=== PATIENT | female | born 1965 | race Caucasian/White ===

== ENCOUNTER → 2019-12-22 | Outpatient (CLI) | payer MEDICARE, OTHER ==
--- NOTE | 2019-12-22 11:38 | KCIC ---
MR of the left knee HISTORY: Left knee pain. ACL surgery 2012. Medial pain and swelling, new. TECHNIQUE: Routine multiplanar sequences are obtained. COMPARISON: None are available. FINDINGS: Mild signal identified within the medial meniscus posterior horn with slight inferior surface violation compatible with a small tear, although if there has been prior surgery at the medial meniscus, this finding is less specific. No evidence of lateral meniscal tear. Anterior cruciate ligament has been reconstructed. The reconstruction appears intact. Tiny tibial condyle cyst. Posterior cruciate ligament is intact. Medial collateral ligament is intact. Iliotibial band unremarkable. Fibular collateral ligament, biceps femoris tendon and popliteus tendon are intact. The extensor mechanism is intact. Mild chondromalacia at the medial patella. No evidence of acute articular cartilage defect. No acute fracture or aggressive bone destruction. Small joint effusion. Trace Beach's cyst. Scarring within the infrapatellar fat, presumably due to prior surgery. Impression: 1. Signal at the medial meniscus, compatible with a small tear. However, prior meniscal surgery could contribute to this appearance. 2. Anterior cruciate ligament reconstruction is intact. 3. Mild chondromalacia at the medial patella. Electronically signed by: Cristian Villa MD (12/22/2019 11:35 AM) [id number]
--- NOTE | 2019-12-22 11:38 | KCIC ---
MR of the right knee HISTORY: Right knee pain. Previous meniscal surgery in the . Lateral pain and swelling. COMPARISON: None are available. TECHNIQUE: Routine multiplanar sequences are obtained. FINDINGS: The medial meniscus is small and distorted, could be partially due to prior meniscectomy, but recurrent tearing is possible. No evidence of lateral meniscal tear. Anterior cruciate ligament is poorly seen, chronic tear is suspected. No acute edema in the notch. No acute pivot shift bone marrow contusions. Posterior cruciate ligament is intact. Medial collateral ligament intact. Iliotibial band unremarkable. Fibular collateral ligament, biceps femoris tendon and popliteus tendon are intact. Extensor mechanism intact. Small joint effusion. No significant Beach's cyst. Severe cartilage loss at the medial joint compartment with subchondral bone irregularity and mild subchondral edema/cystic change. Mild lateral compartment degenerative change. Severe chondromalacia at the medial patella. No evidence of acute fracture or aggressive bone destruction. No acute soft tissue abnormality. IMPRESSION: 1. Small and distorted medial meniscus, could be due partially to prior meniscectomy, but recurrent tearing is possible and not excludable. 2. Nonvisualized anterior cruciate ligament, compatible with a chronic tear. 3. DJD, severe at the medial joint compartment. Electronically signed by: Cristian Villa MD (12/22/2019 11:35 AM) [id number]
== END | disposition home or self-care (01) ==
LOC: KCIC MRI 09:56
PROVIDERS: ATTEND Orthopaedic Surgery
DX: S83.242A Other tear of medial meniscus, current injury, left knee, initial encounter (principal); M17.11 Unilateral primary osteoarthritis, right knee; M22.42 Chondromalacia patellae, left knee; X58.XXXA Exposure to other specified factors, initial encounter; Y93.89 Activity, other specified; Y92.89 Other specified places as the place of occurrence of the external cause; Y99.8 Other external cause status
CPT/HCPCS: 73721

== ENCOUNTER 2020-01-05 06:00 | Day surgery (SDC) | payer OTHER, MEDICARE ==
--- NOTE | 2020-01-04 18:20 | PDOC1 ---
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 She was lifting something and both knees gave out and she fell to the floor. She presented to my office in a wheelchair because she could not walk after the bilateral knee giving way. She has a history of a prior knee injury and surgery in 2011, when she stepped off a curb incorrectly, and subsequently underwent ACL reconstruction using cadaver graft (allograft) done by Dr. Cadena in 2011. She has a history of a right knee open meniscectomy when she was 14 years old. She has a complex medical history including antiph ospholipid syndrome, lupus, and a history of postprocedural complications: She had a colonoscopy after which she had an infection, had a subsequent laparotomy, and then spent a month in the ICU. She had an MRI of both knees recently, and the right knee has fairly significant arthritis and the right knee is no longer amenable to an arthroscopic procedure. She and I have discussed a possible right knee replacement surgery once the pandemic has subsided, and after she can begin depending on the left lower e xtremity for weightbearing. The right knee continues to be somewhat painful but is not having the severe mechanical complications that she is having on the left knee. On the left knee where she had that prior ACL reconstruction she has had persistent locking and giving way episodes, and multiple falls as a result. An MRI was done which shows that the graft is intact, but she has instability episodes that are suspicious for a nonfunctional ACL. The MRI also shows a medial meniscus tear which is also a likely source of locking and giving way. Normally an arthroscopic meniscectomy and/or ACL reconstruction would not be considered urgent enough to do during this COVID-19 pandemic crisis, however has fallen frequently since the knee episode earlier this month and is nearly nonfunctional and nearly unable to walk or mobilize at all. I believe the benefits of proceeding with surgery (despite the pandemic and moratorium on elective procedures) outweigh the potential risks of complications of her frequent falls such as wrist fracture, hip fracture, concussion, or other injuries. I do not believe this is elective and she agrees. We discussed the risks benefits and alternatives of proceeding at this time and she would like to proceed and it is my recommendation to proceed with left knee arthroscopy, medial meniscectomy and possible revision ACL reconstruction. Despite her antiphospholipid syndrome, she has never had a DVT or PE. Past Medical History Past Medical History Antiphospholipid syndrome, hypertension, lupus Cardiovascular: HTN Rheumatologic: Other (lupus, antiphospholipid syndrome) Past Surgical History Past Surgical History Laparotomy following complications of colonoscopy Carpal tunnel release ACL reconstruction Open meniscectomy Past Surgical History: Colon Resection Family History Family History Lupus, rheumatoid arthritis, cancer Family History: Cancer Social History Smoke: No ALCOHOL: none Current Medications Current Medications Current Medications Ondansetron HCl (Zofran) 4 mg PRN Q6HRS PRN IV NAUSEA/VOMITING; Start 01/05/20 at 07:00; Stop 01/06/20 at 06:59 Morphine Sulfate (Morphine Sulfate) 1 mg PRN Q10MIN PRN IV SEVERE PAIN 7-10; Start 01/05/20 at 07:00; Stop 01/06/20 at 06:59 Ringer's Solution 1,000 ml @ 30 mls/hr Q24H IV ; Start 01/05/20 at 07:00; Stop 01/05/20 at 18:59 Lidocaine HCl (Xylocaine-Mpf 1% 2ml Vial) 2 ml PRN 1X PRN ID PRIOR TO IV START; Start 01/05/20 at 07:00; Stop 01/06/20 at 06:59 Hydromorphone HCl (Dilaudid) 0.5 mg PRN Q10MIN PRN IV SEV PAIN, Second choice; Start 01/05/20 at 07:00; Stop 01/06/20 at 06:59 Prochlorperazine Edisylate (Compazine) 5 mg PACU PRN PRN IV NAUSEA, MRX1; Start 01/05/20 at 07:00; Stop 01/06/20 at 06:59 Cefazolin Sodium/ Dextrose 50 ml @ 100 mls/hr 1X PREOP PRN IV PRIOR TO PROCEDURE; Start 01/05/20 at 06:00; Stop 01/05/20 at 18:00 Active Scripts Active Reported Proair Hfa Inhaler (Albuterol Sulfate) 8.5 Gm Hfa.aer.ad 2 Puff IH PRN Q4-6HRS PRN 21 Days Irbesartan 75 Mg Tablet 75 Mg PO DAILY Carvedilol 25 Mg Tablet 25 Mg PO BIDWMEALS Allergies Allergies: Coded Allergies: acetaminophen (Verified Allergy, Severe, Anaphylaxis, 01/01/20) fentanyl (Verified Allergy, Severe, Anaphylaxis, 01/01/20) Uncoded Allergies: pantene soap (Adverse Reaction, Severe, Shortness of Air, 01/01/20) difficulty breathing ROS Review of System OPHTHALMOLOGY: Blurred vision none. Double vision denies. Change in vision none. ENT: Hearing loss none. Change in voice denies. Rhinorrhea none. CARDIOLOGY: Palpitations none. Shortness of breath denies. Chest pain denies. CONSTITUTIONAL: Fever denies. Chills denies. Weight gain denies. Weakness none. weight loss denies. Fatigue none. GASTROENTEROLOGY: Diarrhea reports. Vomiting none. Dysphagia none. UROLOGY: Voiding normally yes. Hematuria none. MUSCULOSKELETAL: Chronic back or neck pain denies. Swelling of the feet, hands, ankles and /or legs denies. Joint pain reports. Tingling/numbness no. DERMATOLOGY: Rash reports. Lumps none. NEUROLOGY: Dizziness/lightheadedness denies. Double vision, temporary blindness denies. Tingling/numbness none. PSYCHOLOGY: Change in mood or personality denies. Memory loss none. ENDOCRINOLOGY: Obesity denies. Fatigue none. Weight loss none. HEMATOLOGY/LYMPH: Hepatitis denies. Enlarged lymph nodes denies. Physical Exam General: Alert, Cooperative HEENT: Atraumatic Lungs: Normal air movement Heart: RRR Abdomen: Soft Extremities: Other (She is nearly unable to ambulate or weight bear as she was unable to get on the exam table. She is using a wheelchair. Knee The RIGHT knee shows normal alignment, no masses, but a small effusion. There is tenderness at the lateral joint line and a positive lateral Zaira's test. The medial joint line shows minimal tenderness. Range of motion is 10-80 degrees. There is trace patellofemoral crepitus. There is lateral joint line pain with deep flexion and especially with rotation of the tibia. The knee is stable to varus and valgus stress without subluxation or laxity. The ACL feels intact on Clarisa testing. Muscle strength is normal (5/5) for quadriceps and hamstrings, and muscle tone is normal. There are well healed medial arthrotomy scars from prior open meniscectomy skin is otherwise normal with no scars, rashes, lesions or ulcers. Light touch sensation is intact. No edema and no varicosities. Dorsalis pedis pulse is intact and capillary refill is normal. The LEFT knee shows normal alignment, no masses, but moderate effusion. There is tenderness at the medial joint line and a positive medial Zaira's test. The lateral joint line shows minimal tenderness. Range of motion is 10-80 degrees. There is trace patellofemoral crepitus. There is medial joint line pain with deep flexion and especially with rotation of the tibia. The knee is stable to varus and valgus stress without subluxation or laxity. Anterior drawer is suspicious for graft rupture. Muscle strength is normal (5/5) for quadriceps and hamstrings, and muscle tone is normal. There are well healed surgical scars from prior ACL reconstruction with cadaver graft. The skin is otherwise normal with no scars, rashes, lesions or ulcers. Light touch sensation is intact. No edema and no varicosities. Dorsalis pedis pulse is intact and capillary refill is normal ) Images Images X-rays 12/21/2019 showed postsurgical changes of left knee consistent with ACL re construction. There is minimal if any joint space narrowing. MRI of the left knee from 12/22/2019 show a complex medial meniscus tear series 6 image 16. Series 6 image 12 shows knee effusion, and ACL graft of questionable integrity. VTE Prophylaxis Ordered VTE Prophylaxis Devices: Yes VTE Pharmacological Prophylaxi: Yes Assessment/Plan Assessment/Plan She and I had a long discussion about the risks, benefits and alternatives of proceeding with surgery at this time. She has had frequent falls and is at risk of additional injuries. Both knees continue to be problematic but the left knee is amenable to an arthroscopic procedure based on my evaluation. I think an arthroscopic meniscectomy may be all that is needed to keep her from falling. I will check her ACL graft intraoperatively for function such as doing an intraoperative pivot shift maneuver under anesthesia. If the knee is unstable regarding ACL function, then ACL revision reconstruction would be helpful to prevent arthritis, protect the joint, and provide stability of the knee. The right knee unfortunately is beyond any arthroscopic procedure based on the severe cartilage loss, and my recommendation for her right knee is ultimately a total knee arthroplasty, once the pandemic has resolved. The right knee has a chronically torn ACL, absent medial meniscus, and severe osteoarthritis. We discussed potential risks of arthroscopic surgery, including risks of bleeding, infection, progressive arthritis, blood clots, or other potential surgical or anesthetic complications. All of her questions were answered and she desires to proceed with surgery. We will use DVT prophylaxis postoperatively due to her antiphospholipid syndrome. ILIR JACKSON MD Jan 04, 2020 18:20
[~2020-01-05] VITALS: Ht 157.5 cm; Wt 94.8 kg
[~2020-01-05 06:00] MED LIST: ALBU2.5V8 IH; CARV25TA2 PO; IRBE75TA16 PO
[2020-01-05] MEDS ORDERED: HYDROmorphone 2 MG/ML VIAL IV PRN (07:00)
[2020-01-05] MEDS ORDERED: IV RINGERS,LACTATED 1000ML 1,000 ML IV SCH (07:00)
[2020-01-05] MEDS ORDERED: ONDANSETRON PF 4 MG/2 ML VIAL. IV PRN (07:00)
[2020-01-05] MEDS ORDERED: LIDOCAINE 1% PF 2 ML VIAL. ID PRN (07:00)
[2020-01-05] MEDS ORDERED: ceFAZolin 2GM PREMIX 2 GM/50 ML BAG IV ONE (07:00)
[2020-01-05] MEDS ORDERED: MORPHINE SULFATE 2 MG/ML VIAL. IV PRN (07:00)
[2020-01-05] MEDS ORDERED: PROCHLORPERAZINE 10 MG/2 ML VIAL. IV PRN (07:00)
[2020-01-05 07:01] LABS: BASO % 1 % (0-3); EOS # 0.3 x10^3/uL (0.0-0.7); EOS % 3 % (0-3); HEMATOCRIT 41.3 % (36.0-47.0); HEMOGLOBIN 13.7 g/dL (12.0-15.5); LYMPH # 2.5 x10^3/uL (1.0-4.8); LYMPH % 27 % (24-48); MEAN CORPUSCULAR HEMOGLOBIN 29 pg (25-35); MEAN CORPUSCULAR HGB CONC 33 g/dL (31-37); MEAN CORPUSCULAR VOLUME 86 fL (79-100); MONO # 0.6 x10^3/uL (0.0-1.1); MONO % 7 % (0-9); NEUT # 5.7 x10^3/uL (1.8-7.7); NEUT % 63 % (31-73); PLATELET COUNT 224 x10^3/uL (140-400); RED BLOOD COUNT 4.79 x10^6/uL (3.50-5.40); RED CELL DISTRIBUTION WIDTH 14.3 % (11.5-14.5); WHITE BLOOD COUNT 9.2 x10^3/uL (4.0-11.0)
[2020-01-05] MEDS ORDERED: EPINEPHrine VIAL 30 MG/30 ML VIAL ONE (07:04)
[2020-01-05] MEDS ORDERED: BUPIVACAINE-EPI 0.25%-1:200000 MPF 30 ML VIAL. ONE ×2 (07:05→08:16)
[2020-01-05 07:09] LABS: CALCIUM 8.9 mg/dL (8.5-10.1); CREATININE 0.9 mg/dL (0.6-1.0); GFR 65.2
[2020-01-05] MEDS ORDERED: GLYCOPYRROLATE 1 MG/5 ML VIAL. ONE (07:10)
[2020-01-05] MEDS ORDERED: ROCURONIUM 50 MG/5 ML VIAL. ONE (07:10)
[2020-01-05] MEDS ORDERED: DEXAMETHASONE SOD PHOS 4 MG/ML VIAL ONE (07:11)
[2020-01-05] MEDS ORDERED: MIDAZOLAM HCL/PF 2 MG/2 ML VIAL. ONE (07:11)
[2020-01-05] MEDS ORDERED: NEOSTIGMINE METHYLSULFATE 5 MG/5 ML SYRINGE. ONE (07:11)
[2020-01-05] MEDS ORDERED: ONDANSETRON PF 4 MG/2 ML VIAL. ONE (07:11)
[2020-01-05] MEDS ORDERED: PROPOFOL 20 ML IV ONE (07:11)
[2020-01-05] MEDS ORDERED: MORPHINE SULFATE 10 MG/ML VIAL. ONE (07:11)
[2020-01-05] MEDS ORDERED: LIDOCAINE 2% PF 5 ML VIAL. ONE (07:11)
[2020-01-05] MEDS ORDERED: KETOROLAC 30 MG/ML VIAL. ONE (07:11)
[2020-01-05] MEDS ORDERED: 0.9 % SODIUM CHLORIDE 20 ML VIAL. IJ ONE (07:12)
[2020-01-05 07:15] LABS: ALBUMIN 3.6 g/dL (3.4-5.0); ALBUMIN/GLOBULIN RATIO 1.1 (1.0-1.7); TOTAL BILIRUBIN 0.3 mg/dL (0.2-1.0); TOTAL PROTEIN 6.8 g/dL (6.4-8.2)
[2020-01-05 07:18] LABS: PROTHROMBIN TIME PATIENT 12.2 SEC (11.7-14.0)
[2020-01-05] MEDS ORDERED: PHENYLEPHRINE in 0.9% NACL PF 1 MG/10 ML SYRINGE. IV ONE (08:09)
[2020-01-05] MEDS ORDERED: MORPHINE SULFATE 2 MG/ML VIAL. ONE (08:56)
--- NOTE | 2020-01-05 09:40 | PDOC4 ---
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 She had ACL reconstruction on this knee several years ago and did well after that. She had a giving way episode recently, and now has a severe sense of instability of the knee giving way sharp pains. The other knee is also bothersome, and she has been nearly immobile. She and I had a long discussion about the risks, benefits and alternatives of proceeding with surgery at this time. She has had frequent falls and is at risk of additional injuries. Both knees continue to be problematic but the left knee is amenable to an arthroscopic procedure based on my evaluation. I think an arthroscopic meniscectomy may be all that is needed to keep her from falling. I will check her ACL graft intraoperatively for function such as doing an intraoperative p ivot shift maneuver under anesthesia. If the knee is unstable regarding ACL function, then ACL revision reconstruction would be helpful to prevent arthritis, protect the joint, and provide stability of the knee. The right knee unfortunately is beyond any arthroscopic procedure based on the severe cartilage loss, and my recommendation for her right knee is ultimately a total knee arthroplasty, once the pandemic has resolved. The right knee has a chronically torn ACL, absent medial meniscus, and severe osteoarthritis. We discussed potential risks of arthroscopic surgery, including risks of bleeding, infection, progressive arthritis, blood clots, or other potential surgical or anesthetic complications. All of her questions were answered and she desires to proceed with surgery. Procedure in Detail: The patient was identified in the preoperative holding area. The correct right knee was marked by me. The patient was taken to the operating room where general anesthetic was used. The patient was positioned roldan pine on the operating table. Under anesthesia, I did a careful exam of the left knee. The ACL graft seems intact with minimal translation on Clarisa and anterior drawer testing, and negative pivot shift. A padded tourniquet was placed on the upper thigh. A lateral brace and heel bump were used. Preoperative antibiotics were given intravenously. A timeout procedure was performed. Local anesthetic with epinephrine was injected into the knee joint, and into the anteromedial tibia area. The limb was prepared with sterile ChloraPrep solution from the tourniquet to the tip of the toes, then sterile drapes are applied. An impervious stockinette was used over the lower limb. Lateral and medial arthroscopic portals were used and were made with an 11 blade scalpel. The medial joint line showed a complex medial meniscus tear with a partial bucket-handle configuration but also with a loose parrot beak flap posteriorly, and complex interstitial delamination and tearing. Partial meniscectomy was performed with basket forceps and the motorized shaver. This extensive meniscus tear is likely the source of her sharp pains and giving way. The meniscal fragments were resected carefully with basket forceps and the motorized shaver, removing most of the posterior one third of the meniscus, and tapering the resection into the middle one third of the meniscus. There were some minor superficial tearing of the anterior one third of the meniscus removed with the shaver. The chondral surfaces of the femur and tibia are relatively well-preserved, with Outerbridge grade 1 fibrillation. There was need for minor chondroplasty performed with the shaver. The intercondylar notch was carefully examined. The ACL graft was intact and is well-positioned. It appears viable with good blood flow, has a nice anatomic attachment on the femur, and is well positioned on the tibia. It has physiologic laxity to probing, no tearing, and appears perfect. I could not make this ACL any better with a revision. The lateral joint line showed an internal surface complex tear of the lateral meniscus at the middle one third, and additional complex tear at the anterior one third, and partial meniscectomy was performed with basket forceps and the motorized shaver, tapering the resection into the posterior one third of the meniscus. The lateral joint surfaces show chondromalacia Outerbridge grade 1, and minimal chondroplasty was needed. The patellofemoral joint showed a fair amount of scar tissue from the prior surgery and this was removed primarily for visualization. This is typical scar tissue seen in anyone who has had prior surgery. There is chondromalacia along the medial patella, Outerbridge grade 2, and shaving chondroplasty was performed. The suprapatellar pouch medial lateral gutters were free of loose bodies. There was some additional scar tissue near the lateral portal visualized with the arthroscope medially which was also removed. The knee looks to be in quite good condition and I think she will do well with meniscectomy since the chondral surfaces and the ACL graft all appear healthy and essentially normal. Copious saline irrigation was used and removed with a shaver, to remove all chondral and meniscal fragments. The knee was drained of fluid. The portals were closed with #3-0 Prolene simple interrupted sutures. An additional 30 mL of 0.25% bupivacaine with epinephrine was injected. Xeroform and sterile d ressings were applied. The tourniquet was released. Needle and sponge counts were correct. There were no apparent complications. ILIR JUNE MD Jan 05, 2020 09:40
[2020-01-05 10:25] VITALS: BP 129/84
[2020-01-06 01:07] LABS: HEMOGLOBIN A1C 6.6 % (4.8-5.6)
== END 2020-01-05 10:49 | disposition home or self-care (01) ==
LOC: SURG 06:00
PROVIDERS: ATTEND Orthopaedic Surgery
DX: S83.232A Complex tear of medial meniscus, current injury, left knee, initial encounter (principal); S83.242A Other tear of medial meniscus, current injury, left knee, initial encounter; S83.272A Complex tear of lateral meniscus, current injury, left knee, initial encounter; M94.262 Chondromalacia, left knee; I10 Essential (primary) hypertension; Z98.890 Other specified postprocedural states; Z90.49 Acquired absence of other specified parts of digestive tract; Z88.6 Allergy status to analgesic agent; Z88.1 Allergy status to other antibiotic agents; Z79.899 Other long term (current) drug therapy; Z79.01 Long term (current) use of anticoagulants; X58.XXXA Exposure to other specified factors, initial encounter; Y93.89 Activity, other specified; Y92.89 Other specified places as the place of occurrence of the external cause; Y99.8 Other external cause status
CPT/HCPCS: 29880; 80053; 83036; 85025; 85610; 85730; J0171; J1100; J1885; J2250; J2270; J2370; J2405; J2704; J2710; J3490; J7040; 36415; A7015; C1782; J0696; J7120